=== PATIENT | male | born 1995 | race Caucasian/White ===

== ENCOUNTER → 2018-05-13 14:55 | Outpatient (CLI) | payer OTHER, SELFPAY | PROVIDERS: Family Provider Family Medicine; PCP Family Medicine; Visit Provider Family Medicine | DX: M25.512 Pain in left shoulder (principal) | CPT/HCPCS: 73030 ==

== ENCOUNTER 2018-08-06 11:00 | Outpatient (RCR) | payer OTHER, SELFPAY ==
--- NOTE | 2018-06-28 13:32 | HP.PTEVAL_ITS ---
Patient's Visit Information ANNE SOSA is a 22 year old M referred to Physical Therapy by Ayanna Aguilar DO with a diagnosis of Acute L shoulder pain, biceps tendonitis. Date of Evaluation: 06/28/18 Physical Therapist: Jayna Leonardo - Visit Plan Frequency: 2x /Week Duration: 4 Weeks Plan: PT 2x week for 1 hour for 4 weeks focusing on scapular stabilization and strengthening, shoulder strengthening, end range AROM, and correct posture. - Subjective Subjective: Pt. c/o lingering shoulder pain. Dislocate shoulder during lacrosse in high school and AT reduced; no f/u care. In college after injured during lifting weight lifting bar overhead; dx with labrum/RC injury-no imaging. Approx. 2 months ago pt. 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 Pt. woke up the next day with L shoulder pain. Saw physician day after waking up in pain; radiographs completed but never heard results. Physician rx increased strength Advil, which helped for most part. Saw physician f/u about 2 weeks ago, did stretches, and refered to PT. Physician believes bicep tendonitis. Main location of aching pain is anterior; initial pain in back and neck. After [employer] injury felt like something was wrapped around shoulder. Currently pt. describes pain as feeling like a needle. Pt. reports feeling like nothing is holding up his shoulder, especially at end of workday. Current pain 1-2/10, best 0/10 when take Rx Advil, worst 9/10 after injury. Pain stays local unless exert itself radiates to back and neck; stiffness in neck and upper back. Can feel the pain when sweet pickle maker tv onto shelf. Immediately after injury felt tingling in elbow and fingers; occasionally feels tingling in finger. R hand dominant. Sometimes neck motions can cause to feel shoulder sx. No dizzinesss or blurred vision. Noticed more frequent MYERS but other factors such as weather and decreased sleep contributing. MYERS on L side superior head. Sleeping is difficult, getting 5-9 hours depending on work schedule, restless sleep. Sleeps with arm abducted to 90 deg, sleeps on stomach and both sides. Usually able to re-adjust arm position and fall back asleep. 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 Able to complete all tasks at work but can feel shoulder pain, ex. wheeling appliance on [employer], lift tv to chest height. Notices change way put on shirt if really painful. Notices popping and clicking when raising arm overhead. While sitting at home in chair no pain currently; initial injury felt most comfortable on back. During initial injury kept arm at side. Hx of broken fingers. Taking Welbutren. - Pain anterior L shoulder Pain Intensity (Out of 10): 2 Pain Intensity Range: 0, 9 - Objective Gait: WNL. Posture: rounded shoulders, L winging scapula. Dermatomes: UE intact bilat. Palpation: TTP coracoid process, long head biceps tendon, and lesser tuberosity of humerus. AROM: cervical flex. WFL with slight L ant. shoulder pn, ext. approx 20 deg, side bend bilat. approx 30 deg with stiffness, rotation bilat. WFL. Shoulder L flex. and abd. WFL with end range pain and he sitation last 10 degrees, ext., ER at 0 deg pain ant. shoulder WFL,R at 0 deg WFL, IR reach to mid scapula bilat. IR/ER at 90 WFL with end range pain and hesitation last 10 deg of ER. Elbow and wrist WNL. Strength: L shoulder 4/5 throughout compared to R, scapular strength fair. Core strength good. L elbow flex 4/5, L elbow ext. and wrist 5/5. Special Tests: Neer's (+) Hawkin's Luan (+ at 90 deg horizontal add. in elevation) Speed's (+) Yergason (-) Drop Arm (-) Paty and Jerk Tests (-)Apprehension, Relocation Release (+) - Goals Goal 1:: Patient will be I with HEP and progressions. Goal Time Frame: 4-6 Weeks Goal 2:: Patient will maintain proper posture throughout session to demonstrate increased scapular stabilization. Goal Time Frame: 4-6 Weeks Goal 3:: Patient will demonstrate increased strength of L shoulder to 5/5. Goal Time Frame: 4-6 Weeks Goal 4:: Patient will demonstrate full AROM without end range pain where deficits. Goal Time Frame: 4-6 Weeks Goal 5:: Patient will stack 10# weight overhead x10 with proper technique and no pain. Goal Time Frame: 4-6 Weeks - Rehabilitation Potential Physical Therapy Diagnosis: Patient presents with hypomobility. Multidirectional instability and decreased strength of L shoulder limiting patient from full participation in daily and work overhead activities painfree. Rehabilitation Potential: Good - Anticipated Interventions Patient/Client Instruction: Educate patient on: Condition, Plan of Care, Benefits of Fitness Program For the Purpose of:: To increase ROM, To improve muscle performance and motor function, To increase tolerance to activity/condition/position, To improve ability of physical actions for home/community/work/leisure, To increase flexibility/ROM Therapeutic Exercise to Include: Strength training, Power training, Endurance training, Coordination, Body mechanics, Postural training, Active ROM, Scapular Strength/Stabilization For the Purpose of:: To increase ROM, To improve muscle performance and motor function, To improve ability to perform ADL's, To increase tolerance to activity/condition/position, To reduce risk of recurrence, To prevent re-injury, To improve tolerance to ADL's TENS: Yes Cryotherapy (ice pack, ice massage): Yes Thermo therapy (hot pack): Yes Ultrasound (thermal/non thermal): Yes For the Purpose of:: To decrease pain Thank you for the opportunity to evaluate your patient. For Medicare and Medicare HMO plans, please review the plan of care and approve it. It will need to be FAXED BACK to us at [phone] for Medicare purposes. Please let me know if there are questions or concerns regarding this plan of care. Physician Signature: Date:
--- NOTE | 2018-09-24 09:48 | HP.PT.NRP ---
HP - Discharge Summary (1) - Patient Information ANNE SOSA was seen in my office for initial evaluation on 06/28/18. The following Plan of Care was established for this patient: Initial Frequency: 2x /Week Initial Duration: 4 Weeks - Anticipated Interventions Patient/Client Instruction: Educate patient on: Condition, Plan of Care, Benefits of Fitness Program For the Purpose of:: To increase ROM, To improve muscle performance and motor function, To increase tolerance to activity/condition/position, To improve ability of physical actions for home/community/work/leisure, To increase flexibility/ROM Therapeutic Exercise to Include: Strength training, Power training, Endurance training, Coordination, Body mechanics, Postural training, Active ROM, Scapular Strength/Stabilization For the Purpose of:: To increase ROM, To improve muscle performance and motor function, To improve ability to perform ADL's, To increase tolerance to activity/condition/position, To reduce risk of recurrence, To prevent re-injury, To improve tolerance to ADL's TENS: Yes Cryotherapy (ice pack, ice massage): Yes Thermo therapy (hot pack): Yes Ultrasound (thermal/non thermal): Yes For the Purpose of:: To decrease pain This patient was last seen in our office . Pertinent comments regarding their Physical therapy will appear below: Patient has not attended therapy in over 8 weeks- appropriate for d/c and return to MD for further evaluation as needed. At this point I will be discontinuing this patient from physical therapy. I would be happy to see this patient again in the future if found appropriate by the physician. Thank you! Jayna Leonardo DPT
== END 2018-08-06 19:00 | disposition home or self-care (01) ==
LOC: PT 11:00
PROVIDERS: Family Provider Family Medicine; PCP Family Medicine; Visit Provider Family Medicine
DX: M25.512 Pain in left shoulder (principal)
CPT/HCPCS: 97110; 97161

== ENCOUNTER → 2018-11-12 16:22 | Outpatient (CLI) | payer OTHER, SELFPAY ==
--- NOTE | 2018-11-12 16:45 | MRI_ITS ---
STUDY: MRI LEFT SHOULDER REASON FOR EXAM: Male, 22 years old. Chronic left shoulder pain. Decreased range of motion. TECHNIQUE: Standardized fat and water weighted pulse sequences were obtained in all 3 orthogonal planes. COMPARISON: None. FINDINGS: Normal supraspinatus tendon. Normal infraspinatus tendon. Normal subscapularis tendon. Normal teres minor tendon. Normal supraspinatus muscle. Normal infraspinatus muscle. Normal subscapularis muscle. Normal teres minor muscle. Normal glenohumeral articulation. Normal humeral head and visualized proximal humerus. Normal biceps labral complex. Normal intracapsular long biceps tendon. Normal labrum. Normal capsulo- ligamentous complex. Normal rotator interval. Normal acromioclavicular articulation. There is a Type II morphology (curved), with a neutral orientation. There is no subacromial-subdeltoid bursal fluid. Normal visualized coracohumeral and coracoacromial ligaments. Normal quadrilateral space. Normal axillary space. Normal deltoid muscle. Normal trapezius muscle. MRI/Upper Ext Joint Only(Routine) IMPRESSION: Normal MRI of the shoulder. Electronically Signed: Sharon Adams MD at 23:46 EST Tel , Service support ,
== END ==
PROVIDERS: Family Provider Family Medicine; PCP Family Medicine; Referring Provider Family Medicine; Visit Provider Family Medicine
DX: M25.512 Pain in left shoulder (principal)
CPT/HCPCS: 73221